=== PATIENT | male | born 1945 | race Caucasian/White ===

== ENCOUNTER → 2021-02-18 | Outpatient (CLI) | payer MEDICARE ==
[~2021-02-18] MED LIST: ASPIRIN CHEWABL81 MG PO; DIOVAN80 MG PO; ISOSORBIDE DINI40 MG PO; LASIX20 MG PO; MULTIVITAMIN PO; NITROSTAT0.4 MG SL; NORCO 5-325 TA1 EACH PO; NORVASC10 MG PO; OXYCODONE HCL10 MG PO; PROTONIX40 MG PO; VITAMIN B-12 PO; VITAMIN D PO; VITAMIN E400 UNI2 PO
== END ==
LOC: KOH-I 13:42
DX: M25.571 Pain in right ankle and joints of right foot (principal); M24.671 Ankylosis, right ankle; Q78.8 Other specified osteochondrodysplasias; Z98.1 Arthrodesis status
CPT/HCPCS: 73610